=== PATIENT | female | born 1990 | race Hispanic/Latino ===

== ENCOUNTER 2019-04-02 21:16 | Emergency (ER) | payer BC ==
[2019-04-02 22:03] LABS: Urine Blood 3+ (NEG); Urine Glucose NEGATIVE (NEG); Urine Protein NEGATIVE (NEG)
[2019-04-02] MEDS ORDERED: ONDANSETRON 4 MG/2 ML VIAL ONE (22:08)
[2019-04-02] MEDS ORDERED: FAMOTIDINE 20 MG/2 ML VIAL IV ONE (22:08)
[2019-04-02] MEDS ORDERED: NA CHLORIDE 0.9% 1,000 ML ONE (22:08)
[2019-04-02 22:43] LABS: Absolute Lymphocytes (CBC) 1.9 K/uL (0.7-4.9); Basophils % 0.5 % (0-1.3); Hematocrit 36.6 % (36.0-45.0); Lymphocytes % 27.7 % (15.3-44.8); MPV 8.2 fL (7.6-11.3); RBC Red Blood Cell Count 4.06 M/uL (3.86-4.86)
[2019-04-02 22:57] LABS: ALT/SGPT 21 U/L (12-78); AST/SGOT 11 U/L (15-37); Albumin 3.7 g/dL (3.4-5.0); Alkaline Phosphatase 58 U/L (45-117); BUN Blood Urea Nitrogen 14 mg/dL (7-18); Bicarbonate 26 mmol/L (21-32); Bilirubin Direct < 0.1 mg/dL (0-0.2); Bilirubin Total 0.2 mg/dL (0.2-1.0); Glucose Level 102 mg/dL (74-106); HCG, Quantitative 23 mIU/mL (1-3); Lipase 174 U/L (73-393); Potassium 3.6 mmol/L (3.5-5.1); Protein, Total 7.8 g/dL (6.4-8.2); Sodium Level 142 mmol/L (136-145)
[2019-04-02 23:01] LABS: Urine Amorphous Sediment 3+ /HPF (NONE SEEN); Urine Bacteria >50 /HPF (<20); Urine Culture Reflex Order REFLEXED
[2019-04-03] MEDS ORDERED: ACETAMINOPHEN 325 MG TABLET ONE (00:02)
--- NOTE | 2019-04-03 00:27 | ER ---
Nurse's Notes [facility] Name: Hafsa Dougherty Age: 28 yrs Sex: Female : 1990 Arrival Date: 04/02/2019 Time: 21:17 Bed 30 Private MD: Diagnosis: Threatened ;Unspecified abdominal pain Presentation: 04/02 21:22 Presenting complaint: Patient states: i have LLQ and epigastric pain started this mg2 morning, and vaginal spotting this evening. i took a urine test and its positive. i also have nausea and a little bit of vomiting. Transition of care: patient was not received from another setting of care. Onset of symptoms was April 02, 2019. Risk Assessment: Do you want to hurt yourself or someone else? Patient reports no desire to harm self or others. Initial Sepsis Screen: Does the patient meet any 2 criteria? No. Patient's initial sepsis screen is negative. Does the patient have a suspected source of infection? No. Patient's initial sepsis screen is negative. Care prior to arrival: None. 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 - Social history:: Smoking status: Patient/guardian denies using tobacco, Patient/guardian denies using alcohol, street drugs, IV drugs. - Ebola Screening: : No symptoms or risks identified at this time. Screenin:26 Abuse screen: Denies threats or abuse. Denies injuries from another. Nutritional mg2 screening: No deficits noted. Tuberculosis screening: No symptoms or risk factors identified. 21:45 Fall Risk None identified. lc1 Assessment: 21:45 General: Appears uncomfortable, well groomed, well developed, Behavior is calm, lc1 cooperative. Pain: Complains of pain in abdomen Pain does not radiate. Pain currently is 7 out of 10 on a pain scale. Quality of pain is described as aching, Pain began this evening Is. Neuro: No deficits noted. Cardiovascular: No deficits noted. Denies chest pain, fatigue, palpitations, shortness of breath. Respiratory: Airway is patent Trachea midline Respiratory effort is even, unlabored, Respiratory pattern is regular, symmetrical. GI: Bowel sounds present X 4 quads. Abd is soft Abdomen is tender to palpation. GI: Parent/caregiver reports the patient having took test 3 days ago and it was positive, LMP 02/25/19. : No signs and/or symptoms were reported regarding the genitourinary system. EENT: No signs and/or symptoms were reported regarding the EENT system. Derm: No signs and/or symptoms reported regarding the dermatologic system. Musculoskeletal: No signs and/or symptoms reported regarding the musculoskeletal system. 23:00 Reassessment: No changes from previously documented assessment. Patient and/or family lc1 updated on plan of care and expected duration. Pain level reassessed. Patient is alert, oriented x 3, equal unlabored respirations, skin warm/dry/pink. 23:58 Reassessment: No changes from previously documented assessment. Patient and/or family lc1 updated on plan of care and expected duration. Pain level reassessed. Patient is alert, oriented x 3, equal unlabored respirations, skin warm/dry/pink. patient got up and urinated, states she had some more spotting . 04/03 00:40 Reassessment: No changes from previously documented assessment. Patient and/or family lc1 updated on plan of care and expected duration. Pain level reassessed. Patient is alert, oriented x 3, equal unlabored respirations, skin warm/dry/pink. Vital Signs: 04/02 21:25 BP 124 / 84; Pulse 85; Resp 18; Temp 98.2; Pulse Ox 100% on R/A; Weight 69.85 kg; mg2 Height 5 ft. 4 in. (162.56 cm); Pain 12/31; 23:00 BP 90 / 51; Pulse 71; Resp 18; Pulse Ox 98% on R/A; lc1 04/03 00:00 BP 99 / 59; Pulse 71; Resp 18; Pulse Ox 99% on R/A; lc1 04/02 21:25 Body Mass Index 26.43 (69.85 kg, 162.56 cm) mg2 ED Course: 04/02 21:17 Patient arrived in ED. ds1 21:24 Triage completed. mg2 21:26 Víctor Sesay PA is PHCP. cp 21:26 Abdias Stout MD is Attending Physician. cp 21:26 Arm band placed on. mg2 21:33 Graciela Mandel is Primary Nurse. lc1 21:45 Patient has correct armband on for positive identification. Placed in gown. Bed in low lc1 position. 21:59 No apparent distress. Resting quietly. significant other at bedside. lc1 21:59 Urine collected: clean catch specimen, clear. lc1 22:05 Missed attempt(s): 20 gauge in right antecubital area. Bleeding controlled, band aid jp3 applied, catheter tip intact. 22:10 Initial lab(s) drawn, by me, sent to lab. Inserted saline lock: 22 gauge in left jp3 antecubital area, using aseptic technique. Blood collected. Patient maintains SpO2 saturation greater than 95% on room air. 22:16 Patient moved to radiology via wheelchair. lc1 22:16 Warm blanket given. Verbal reassurance given. Pulse ox on. NIBP on. jp3 22:52 US Transvaginal Ob In Process Unspecified. EDMS 22:52 US Abdomen Limited: upper abdomen In Process Unspecified. EDMS 23:00 Awaiting lab results, Awaiting radiology results. lc1 23:00 No provider procedures requiring assistance completed. [facility] 04/03 00:24 Fabiana Albert MD is Referral Physician. cp 00:40 IV discontinued, intact, bleeding controlled, Pressure dressing applied. lc1 Administered Medications: 04/02 22:13 Drug: Pepcid 20 mg Route: IVP; Site: left antecubital; lc1 23:19 Follow up: Response: No adverse reaction 1 22:14 Drug: Zofran 4 mg Route: IVP; Site: left antecubital; lc1 23:20 Follow up: Response: No adverse reaction 1 22:50 Drug: NS 0.9% 1000 ml Route: IV; Rate: 1 bolus; Site: left antecubital; lc1 23:59 Follow up: Response: No adverse reaction; IV Status: Completed infusion [facility] 04/03 00:04 Drug: Tylenol 650 mg Route: PO; lc1 00:42 Follow up: Response: No adverse reaction [facility] 00:31 Drug: Rocephin 1 grams Route: IV; Rate: bolus; Site: right antecubital; tr5 00:45 Follow up: Response: No adverse reaction; IV Status: Completed infusion lc1 Outcome: 00:25 Discharge ordered by . tati 00:40 Condition: good lc1 00:40 Discharge instructions given to patient, Instructed on discharge instructions, medication usage, Demonstrated understanding of instructions, follow-up care, medications, Prescriptions given X 2. 00:53 Discharged to home ambulatory. lc1 00:53 Patient left the ED. lc1 Signatures: Dispatcher [employer] EDGA AvilaMonica lewis Lisa lc1 Víctor Sesay PA PA cp Gardose, Michele, HERNANDO RN mg2 Rod Angelo jp3 Jean Claude Calderón RN RN tr5
[2019-04-03] MEDS ORDERED: CEFTRIAXONE/SWI 1gm 1 GM/10 ML SYR ONE (00:28)
--- NOTE | 2019-04-03 00:28 | EDPHYS ---
Physician Documentation [facility] Name: Hafsa Dougherty Age: 28 yrs Sex: Female : 1990 Arrival Date: 04/02/2019 Time: 21:17 Bed 30 Private MD: ED Physician Abdias Stout HPI: 04/02 22:30 This 28 yrs old Female presents to ER via Ambulatory with complaints of cp Abdominal Pain, Spotting-. 22:30 The patient presents with abdominal pain in the upper abdomen, in the lower abdomen. cp Onset: The symptoms/episode began/occurred today. The symptoms do not radiate. Associated signs and symptoms: Pertinent positives: nausea and vomiting, vaginal bleeding, urinary frequency, Pertinent negatives: anorexia, chest pain, constipation, diarrhea, dysuria, fever. 22:30 Severity of pain: in the emergency department the pain is unchanged despite home cp interventions. 22:30 Patient reports positive home test today. 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 - Social history:: Smoking status: Patient/guardian denies using tobacco, Patient/guardian denies using alcohol, street drugs, IV drugs. - Ebola Screening: : No symptoms or risks identified at this time. ROS: 22:35 Constitutional: Negative for body aches, chills, fever, poor PO intake. cp 22:35 Cardiovascular: Negative for chest pain, palpitations. cp 22:35 Eyes: Negative for injury, pain, redness, and discharge. cp 22:35 ENT: Negative for drainage from ear(s), ear pain, sore throat, difficulty swallowing, difficulty handling secretions. 22:35 Respiratory: Negative for cough, shortness of breath, wheezing. 22:35 Abdomen/GI: Positive for abdominal pain, nausea, vomiting, Negative for constipation, anorexia, black/tarry stool, rectal bleeding. 22:35 : Positive for vaginal bleeding, Negative for burning with urination. 22:35 Skin: Negative for rash. 22:35 Neuro: Negative for altered mental status, headache, weakness. 22:35 All other systems are negative. Exam: 22:45 Constitutional: The patient appears in no acute distress, alert, awake, non-toxic, well cp developed, well nourished. 22:45 Head/Face: Normocephalic, atraumatic. cp 22:45 Eyes: Periorbital structures: appear normal, Conjunctiva: normal, no exudate, no injection, Sclera: no appreciated abnormality, Lids and lashes: appear normal, bilaterally. 22:45 ENT: External ear(s): are unremarkable, Nose: is normal, Mouth: is normal, Posterior pharynx: is normal, airway is patent, no erythema, no exudate. 22:45 Chest/axilla: Inspection: normal, Palpation: is normal, no crepitus, no tenderness. 22:45 Cardiovascular: Rate: normal, Rhythm: regular. 22:45 Respiratory: the patient does not display signs of respiratory distress, Respirations: normal, no use of accessory muscles, no retractions, no splinting, no tachypnea, labored breathing, is not present, Breath sounds: are clear throughout, no decreased breath sounds, no stridor, no wheezing. 22:45 Abdomen/GI: Inspection: abdomen appears normal, Bowel sounds: active, all quadrants, Palpation: soft, in all quadrants, mild abdominal tenderness, in the abdomen diffusely, rebound tenderness, is not appreciated, involuntary guarding, is not appreciated. 22:45 Back: CVA tenderness, is absent. 22:45 Skin: no rash present. Vital Signs: 21:25 BP 124 / 84; Pulse 85; Resp 18; Temp 98.2; Pulse Ox 100% on R/A; Weight 69.85 kg; mg2 Height 5 ft. 4 in. (162.56 cm); Pain 7/10; 23:00 BP 90 / 51; Pulse 71; Resp 18; Pulse Ox 98% on R/A; lc1 04/03 00:00 BP 99 / 59; Pulse 71; Resp 18; Pulse Ox 99% on R/A; lc1 04/02 21:25 Body Mass Index 26.43 (69.85 kg, 162.56 cm) mg2 MDM: 04/02 21:32 Patient medically screened. cp 22:00 Differential diagnosis: cholecystitis, Cholelithiasis, Ectopic , Ovarian cp Torsion, pancreatitis, Pelvic Inflammatory Disease, Tubal Ovarian Abcess, urinary tract infection. 04/03 00:25 Data reviewed: vital signs, nurses notes, lab test result(s), radiologic studies, cp ultrasound, I have discussed the patient's presentation/case with the attending Emergency Department Physician; and as a result, I will discharge patient. 00:25 Counseling: I had a detailed discussion with the patient and/or guardian regarding: the cp historical points, exam findings, and any diagnostic results supporting the discharge/admit diagnosis, lab results, radiology results, the need for outpatient follow up, an OB/Gyne specialist, to return to the emergency department if symptoms worsen or persist or if there are any questions or concerns that arise at home. Response to treatment: the patient's symptoms have mildly improved after treatment, and as a result, I will discharge patient. ED course: VSS. Discussed results of labs and US that returned negative for IUP. Pain improved, will discharge to home with pelvic rest instructions and to repeat beta-hcg in 48 hours. 04/02 21:56 Order name: Quantitative Hcg; Complete Time: 23:27 04/02 23:27 Interpretation: Abnormal: HCGQ 23. 04/02 21:56 Order name: Abo/rh Typing; Complete Time: 23:50 04/02 23:50 Interpretation: Reviewed. 04/02 21:56 Order name: Basic Metabolic Panel; Complete Time: 23:27 04/02 23:28 Interpretation: Reviewed. 04/02 21:56 Order name: CBC with Diff; Complete Time: 23:27 04/02 23:51 Interpretation: Reviewed. 04/02 21:56 Order name: Lipase; Complete Time: 23:27 04/02 23:51 Interpretation: Reviewed. 04/02 21:56 Order name: LFT's; Complete Time: 23:27 04/02 23:27 Interpretation: Normal except: AST 11; GLOB 4.1; A/G 0.9. 04/02 21:58 Order name: US Transvaginal Ob 04/02 21:58 Order name: US Abdomen Limited: upper abdomen 04/02 21:58 Order name: Urine Dipstick--Ancillary (enter results); Complete Time: 22:21 em1 04/02 22:22 Interpretation: Normal except: UBLD 3+; UESTR 2+. cp 04/02 22:01 Order name: Urine --Ancillary (enter results); Complete Time: 22:48 em1 04/02 22:48 Interpretation: URINE PREG POS; Reviewed. cp 04/02 22:21 Order name: Urine Microscopic Only; Complete Time: 23:27 cp 04/02 23:27 Interpretation: Normal except: UWBC 20-50; URBC 10-20; UBACT >50; SQEPI 10-20; AMORPH cp 3+. 04/02 22:28 Order name: Osborne Screen Profile; Complete Time: 23:27 cp 04/02 23:28 Interpretation: MONO NEG; Reviewed. cp 04/02 23:02 Order name: Urine Culture EDMS 04/02 21:56 Order name: Urine Test (obtain specimen); Complete Time: 21:56 cp 04/02 21:56 Order name: IV Saline Lock; Complete Time: 22:15 cp 04/02 21:56 Order name: Labs collected and sent; Complete Time: 22:15 cp 04/02 21:56 Order name: NPO; Complete Time: 22:15 cp 04/02 21:56 Order name: Urine Dipstick-Ancillary (obtain specimen); Complete Time: 21:56 cp Administered Medications: 04/02 22:13 Drug: Pepcid 20 mg Route: IVP; Site: left antecubital; lc1 23:19 Follow up: Response: No adverse reaction lc1 22:14 Drug: Zofran 4 mg Route: IVP; Site: left antecubital; lc1 23:20 Follow up: Response: No adverse reaction 1 22:50 Drug: NS 0.9% 1000 ml Route: IV; Rate: 1 bolus; Site: left antecubital; lc1 23:59 Follow up: Response: No adverse reaction; IV Status: Completed infusion 1 04/03 00:04 Drug: Tylenol 650 mg Route: PO; lc1 00:42 Follow up: Response: No adverse reaction 1 00:31 Drug: Rocephin 1 grams Route: IV; Rate: bolus; Site: right antecubital; tr5 00:45 Follow up: Response: No adverse reaction; IV Status: Completed infusion lc1 Disposition: 01:14 Co-signature as Attending Physician, Abdias Stout MD. rn Disposition: 04/03/19 00:25 Discharged to Home. Impression: Threatened , Unspecified abdominal pain. - Condition is Stable. - Discharge Instructions: Threatened Miscarriage, Vaginal Bleeding During , First Trimester, Pelvic Rest. - Prescriptions for Vitamin 27- 0.8 mg Oral Tablet - take 1 tablet by ORAL route once daily; 60 tablet. Macrobid 100 mg Oral Capsule - take 1 capsule by ORAL route every 12 hours for 7 days; 14 capsule. - Medication Reconciliation Form, Thank You Letter, Antibiotic Education, Prescription Opioid Use form. - Follow up: Fabiana Albert MD; When: 48 Hours; Reason: Repeat Beta-HCG (48 Hours). Follow up: Emergency Department; When: 48 Hours; Reason: Repeat Beta-HCG (48 Hours). - Problem is new. - Symptoms have improved. Signatures: Dispatcher [employer] EDMS Abdias Stout MD MD rn Calhoun, Graciela lc1 Víctor Sesay PA PA cp Gardose, Michele, RN RN mg2 Jean Claude Calderón RN RN tr5 Corrections: (The following items were deleted from the chart) 04/02 22:48 22:48 Abnormal: URINE PREG POS. cp cp 04/03 00:53 00:25 04/03/2019 00:25 Discharged to Home. Impression: Threatened ; Unspecified lc1 abdominal pain. Condition is Stable. Forms are Medication Reconciliation Form, Thank You Letter, Antibiotic Education, Prescription Opioid Use. Follow up: Fabiana Albert; When: 48 Hours; Reason: Repeat Beta-HCG (48 Hours). Follow up: Emergency Department; When: 48 Hours; Reason: Repeat Beta-HCG (48 Hours). Problem is new. Symptoms have improved. cp
[2019-04-03 01:01] VITALS: TEMP 98.2
[2019-04-03 01:04] VITALS: BP 99/59; O2SAT 99
--- NOTE | 2019-04-03 08:08 | RAD REPORT ---
EXAM DESCRIPTION: US - Abdomen Exam Limited - 04/02/2019 10:52 pm CLINICAL HISTORY: Abdominal pain. COMPARISON: None. FINDINGS: The gallbladder is not well distended limiting evaluation somewhat The gallbladder wall is not thickened. A gallstone is not seen. The biliary tree is normal caliber. IMPRESSION: No gallbladder abnormality displayed
--- NOTE | 2019-04-03 08:11 | RAD REPORT ---
EXAM DESCRIPTION: US - Transvaginal OB - 04/02/2019 10:52 pm CLINICAL HISTORY: with pelvic pain and vaginal bleeding COMPARISON: None. FINDINGS: The uterus measures 7 x 3 x 5 centimeters. A gestational sac is not seen within the endom etrium. Endometrial stripe measures 7 millimeters Neither ovary visualized secondary to overlying bowel gas. . An adnexal mass is not noted. No significant free fluid is seen. IMPRESSION: These findings may indicate an early intrauterine in which the gestational sac is not seen secondary to the early age. and even an ectopic can also result in th is appearance. Serial beta HCG levels as well as follow up endovaginal sonogram in 1 week recommended
== END 2019-04-03 00:53 | disposition home or self-care (01) ==
LOC: ER 21:16
DX: O20.0 Threatened abortion (principal); Z3A.00 Weeks of gestation of pregnancy not specified
CPT/HCPCS: 96361; 87088; 85025; 87086; 80048; 36415; 86900; 86308; 81025; 86901; 80076; 84702; 83690; 76705; 76817; 96375; 96374; 99284; J0696; J7030; J2405; 81003; 81015

== ENCOUNTER 2019-04-04 13:27 | Emergency (ER) | payer BC ==
--- NOTE | 2019-04-04 14:16 | ER ---
Nurse's Notes [facility] Name: Hafsa Dougherty Age: 28 yrs Sex: Female : 1990 Arrival Date: 04/04/2019 Time: 13:30 Bed 19 Private MD: Diagnosis: Spontaneous Presentation: 04/04 13:32 Presenting complaint: Patient states: I was here on I was here with spotting, la1 was told to have my HCG rechecked in 48 hours and my bleeding has increased. Transition of care: patient was not received from another setting of care. Onset of symptoms was April 04, 2019. Risk Assessment: Do you want to hurt yourself or someone else? Patient reports no desire to harm self or others. Initial Sepsis Screen: Does the patient meet any 2 criteria? No. Patient's initial sepsis screen is negative. Does the patient have a suspected source of infection? No. Patient's initial sepsis screen is negative. Care prior to arrival: None. 13:32 Method Of Arrival: Ambulatory la1 13:32 Acuity: ROSA 4 la1 RADIO DIRECTOR: 13:33 1, LMP 02/25/2019 la1 14:13 1, 0, Living 0, LMP 02/25/2019 kb Historical: - Allergies: 13:33 No Known Allergies; la1 - PMHx: 13:33 None; la1 - Immunization history:: Adult Immunizations up to date. - Social history:: Smoking status: Patient/guardian denies using tobacco. - Ebola Screening: : No symptoms or risks identified at this time. Screenin:00 Abuse screen: Denies threats or abuse. Nutritional screening: No deficits noted. em Tuberculosis screening: No symptoms or risk factors identified. Fall Risk None identified. Assessment: 14:00 General: Appears in no apparent distress. comfortable, Behavior is calm, cooperative, em Denies fever. Pain: Complains of pain in abdomen Pain currently is 5 out of 10 on a pain scale. Quality of pain is described as crampy. Neuro: Level of Consciousness is awake, alert, obeys commands, Oriented to person, place, time, situation, Appropriate for age. Cardiovascular: Capillary refill < 3 seconds Patient's skin is warm and dry. Respiratory: Airway is patent Respiratory effort is even, unlabored, Respiratory pattern is regular, symmetrical. GI: Abdomen is flat, Patient currently denies nausea, vomiting. : Reports vaginal bleeding that is. Derm: Skin is intact, is healthy with good turgor, Skin is pink, warm \T\ dry. Musculoskeletal: Capillary refill < 3 seconds, Range of motion: intact in all extremities. Vital Signs: 13:33 BP 108 / 76; Pulse 66; Resp 16; Temp 97.5; Pulse Ox 100% on R/A; Weight 69.85 kg; la1 Height 5 ft. 4 in. (162.56 cm); 13:33 Body Mass Index 26.43 (69.85 kg, 162.56 cm) la1 ED Course: 13:30 Patient arrived in ED. mr 13:33 Triage completed. la1 13:34 Arm band placed on right wrist. la1 13:36 [facility] Driver [facility]C [facility] kb 13:36 Rocky Fragoso MD is Attending Physician. kb 13:36 Romeo Hughes LVN is Primary Nurse. em 13:44 Initial lab(s) drawn, by me, sent to lab. kj1 13:44 HCG-Quantitative Sent. kj1 14:00 Patient has correct armband on for positive identification. Bed in low position. Call em light in reach. Adult w/ patient. 14:37 No provider procedures requiring assistance completed. Patient did not have IV access em during this emergency room visit. Administered Medications: No medications were administered Outcome: 14:16 Discharge ordered by MD. kb 14:37 Discharged to home ambulatory, with family. em 14:37 Condition: good 14:37 Discharge instructions given to patient, family, Instructed on discharge instructions, follow up and referral plans. Demonstrated understanding of instructions, follow-up care. 14:39 Patient left the ED. em Signatures: Ana Driver FNP-C FNP-Ckb RiveraIva mr Romeo Hughes, [employer] PUBLIC SAFETY OFFICER em Yoel Cedeno RN RN la1 Ramona Driver kj1
--- NOTE | 2019-04-04 14:16 | EDPHYS ---
Physician Documentation [facility] Name: Hafsa Dougherty Age: 28 yrs Sex: Female : 1990 Arrival Date: 04/04/2019 Time: 13:30 Bed 19 Private MD: ED Physician Rocky Fragoso HPI: 04/04 14:13 This 28 yrs old Female presents to ER via Ambulatory with complaints of kb Vaginal Bleeding, + Preg <12wks. 14:13 The patient presents to the emergency department with urinary symptoms. kb course: care: none, Leakage of Fluid: none appreciated, Ultrasound: the patient had an ultrasound, Risk/complications: no obvious risks or complications are appreciated. Previous pregnancies: the patient has never been . Associated signs and symptoms: Pertinent positives: vaginal bleeding. The patient has not experienced similar symptoms in the past. The patient has been recently seen by a physician:. Pt reports she came in for spotting and was told to come back for repeat quantitative hcg today. . 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 - Social history:: Smoking status: Patient/guardian denies using tobacco. - Ebola Screening: : No symptoms or risks identified at this time. ROS: 14:13 Constitutional: Negative for fever, chills, and weight loss, Cardiovascular: Negative kb for chest pain, palpitations, and edema, Respiratory: Negative for shortness of breath, cough, wheezing, and pleuritic chest pain, Abdomen/GI: Negative for abdominal pain, nausea, vomiting, diarrhea, and constipation, Back: Negative for injury and pain, MS/Extremity: Negative for injury and deformity, Skin: Negative for injury, rash, and discoloration, Neuro: Negative for headache, weakness, numbness, tingling, and seizure. 14:13 : Positive for vaginal bleeding. Exam: 14:13 Constitutional: This is a well developed, well nourished patient who is awake, alert, kb and in no acute distress. Head/Face: Normocephalic, atraumatic. ENT: Nares patent. No nasal discharge, no septal abnormalities noted. Tympanic membranes are normal and external auditory canals are clear. Oropharynx with no redness, swelling, or masses, exudates, or evidence of obstruction, uvula midline. Mucous membranes moist. Neck: Trachea midline, no thyromegaly or masses palpated, and no cervical lymphadenopathy. Supple, full range of motion without nuchal rigidity, or vertebral point tenderness. No Meningismus. Chest/axilla: Normal chest wall appearance and motion. Nontender with no deformity. No lesions are appreciated. Cardiovascular: Regular rate and rhythm with a normal S1 and S2. No gallops, murmurs, or rubs. Normal PMI, no JVD. No pulse deficits. Respiratory: Lungs have equal breath sounds bilaterally, clear to auscultation and percussion. No rales, rhonchi or wheezes noted. No increased work of breathing, no retractions or nasal flaring. Abdomen/GI: Soft, non-tender, with normal bowel sounds. No distension or tympany. No guarding or rebound. No evidence of tenderness throughout. Skin: Warm, dry with normal turgor. Normal color with no rashes, no lesions, and no evidence of cellulitis. MS/ Extremity: Pulses equal, no cyanosis. Neurovascular intact. Full, normal range of motion. Neuro: Awake and alert, GCS 15, oriented to person, place, time, and situation. Cranial nerves II-XII grossly intact. Motor strength 5/5 in all extremities. Sensory grossly intact. Cerebellar exam normal. Normal gait. Vital Signs: 13:33 BP 108 / 76; Pulse 66; Resp 16; Temp 97.5; Pulse Ox 100% on R/A; Weight 69.85 kg; la1 Height 5 ft. 4 in. (162.56 cm); 13:33 Body Mass Index 26.43 (69.85 kg, 162.56 cm) la1 MDM: 13:36 Patient medically screened. kb 14:13 Data reviewed: vital signs, nurses notes. Data interpreted: Pulse oximetry: on room air kb is 100 %. Interpretation: normal. 14:15 Counseling: I had a detailed discussion with the patient and/or guardian regarding: the kb historical points, exam findings, and any diagnostic results supporting the discharge/admit diagnosis, lab results, the need for outpatient follow up, an OB/Gyne specialist, to return to the emergency department if symptoms worsen or persist or if there are any questions or concerns that arise at home. 04/04 13:35 Order name: HCG-Quantitative; Complete Time: 14:15 em Administered Medications: No medications were administered Disposition: 15:11 Co-signature as Attending Physician, Rocky Fragoso MD I agree with the assessment and kdr plan of care. Disposition: 04/04/19 14:16 Discharged to Home. Impression: Spontaneous . - Condition is Stable. - Discharge Instructions: Miscarriage, [id number]. - Medication Reconciliation Form, Thank You Letter, Antibiotic Education, Prescription Opioid Use form. - Follow up: Emergency Department; When: As needed; Reason: Worsening of condition. Follow up: Private Physician; When: 2 - 3 days; Reason: Recheck today's complaints, Continuance of care, Re-evaluation by your physician. Signatures: Dispatcher [employer] EDAna Rey, MIKA-C MIKA-Rocky Johnson MD MD [facility] Romeo Hughes, SOFTWARE CONFIGURATION ANALYST SOFTWARE CONFIGURATION ANALYST em Yoel Cedeno RN RN la1 Corrections: (The following items were deleted from the chart) 14:39 14:16 04/04/2019 14:16 Discharged to Home. Impression: Spontaneous . Condition em is Stable. Forms are Medication Reconciliation Form, Thank You Letter, Antibiotic Education, Prescription Opioid Use. Follow up: Emergency Department; When: As needed; Reason: Worsening of condition. Follow up: Private Physician; When: 2 - 3 days; Reason: Recheck today's complaints, Continuance of care, Re-evaluation by your physician. kb
[2019-04-04 14:44] VITALS: BP 108/76; TEMP 97.5; O2SAT 100
== END 2019-04-04 14:39 | disposition home or self-care (01) ==
LOC: ER 13:27
DX: O03.9 Complete or unspecified spontaneous abortion without complication (principal); Z3A.00 Weeks of gestation of pregnancy not specified
CPT/HCPCS: 36415; 84702; 99283

== ENCOUNTER 2020-10-10 11:03 | Emergency (ER) | payer MEDICARE, OTHER ==
--- OUTSIDE RECORDS SUMMARY | 2020-10-10 11:06 | XMS REPORT | Continuity of Care Document ---
:1990 Author Organization [facility] t Address [address] [place] [address] Care Team Providers Name Role Phone Rafa Freeman DO Attending Clinician Jt Jones MD Attending Clinician Edwina OAKLEY Attending Clinician Doctor Unassigned, Name Attending Clinician Unavailable 2, Lab Attending Clinician Unavailable Pcp, Does Not Have A Attending Clinician Ultrasound Attending Clinician Unavailable Problems This patient has no known problems. Allergies, Adverse Reactions, Alerts This patient has no known allergies or adverse reactions. Medications This patient has no known medications. Procedures This patient has no known procedures. Encounters Start End Encounter Admission Attending Care Care Encounter Source Date/Time Date/Time Type Type Clinicians Facility Department ID 2020-09-13 2020-09-13 Patient MAGGIE Freeman [id number] 00:00:00 00:00:00 Outreach Rafa CURRY [id number] Lon [facility] [id number] ANJEL [phone] [facility] 2019-12-02 2019-12-02 Telemedici Connie Jones [facility] [id number] 07:56:31 14:59:36 ne Visit Jt Gentile [id number] [place] [id number] Lety [phone] [address] 2019-11-13 2019-11-13 Telemedici MAGGIE Bland [id number] 09:25:17 09:40:17 ne Visit [place] [id number] [place] [id number] Professio [phone] [facility] [address] [facility] 2019-11-12 2019-11-12 Telephone Connie Jones [place] [id number] 00:00:00 00:00:00 Cam [place] [id number] [place] [id number] Professio [phone] [address] 2019-11-12 2019-11-12 Orders Doctor SUMEET [id number] 00:00:00 00:00:00 Only Unassigned, JAMILA [id number] [facility] [id number] [id number] 2019-10-29 2019-10-29 Routine Connie Jones [facility] [id number] 10:47:32 11:30:12 Cam [place] [id number] Visit [place] [id number] Professio [phone] [address] 2019-10-29 2019-10-29 Orders Doctor SUMEET [id number] 00:00:00 00:00:00 Only Unassigned, JAMILA [id number] [facility] [id number] [id number] 2019-10-20 2019-10-20 Director Of Business Services 2, [facility] [id number] 14:11:11 14:26:11 Visit [place] [id number] [place] [id number] Professio [phone] [address] 2019-10-20 2019-10-20 Routine Connie Jones [facility] [id number] 13:09:48 13:58:42 Cam [place] [id number] Visit [place] [id number] Professio [phone] [address] 2019-10-20 2019-10-20 Orders Doctor SUMEET [id number] 00:00:00 00:00:00 Only Unassigned, JAMILA [id number] [facility] [id number] [id number] 2019-10-16 2019-10-16 Telephone Robert Connie [facility] [id number] 00:00:00 00:00:00 Cam [place] [id number] [place] [id number] Professio [phone] [address] 2019-10-06 2019-10-06 Telephone [facility], [facility] [id number] 00:00:00 00:00:00 Patient [place] [id number] Does Not [place] [id number] Have A Professio [phone] [address] 2019-09-21 2019-09-21 Director Of Business Services Ultrasound, [facility] [id number] 13:31:03 14:22:53 Visit [facility] [employer]TER REFRIG[employer]ATION [id number] [facility] [id number] MATERNAL [phone] & CHILD [address] [place] [address] [facility] [place] 2019-09-21 2019-09-21 Telemedici Connie Jones [facility] [id number] 08:22:22 08:37:22 ne Visit Jt [place] [id number] [place] [id number] Professio [phone] [address] 2019-07-27 2019-07-27 Routine Edwina [facility] [id number] 13:54:26 14:36:51 [place] [id number] Visit [place] [id number] Professio [phone] [address] Results This patient has no known results.
[2020-10-10 14:53] LABS: Urine Blood 2+ (Negative); Urine Glucose NEGATIVE (Negative); Urine Protein NEGATIVE (Negative); Urine Specific Gravity >1.030 (1.005-1.030); Urine Specific Gravity/Preg >1.030 (1.005-1.030); Urine pH 5.5 (5.0-7.0)
[2020-10-10 15:04] LABS: Absolute Lymphocytes (CBC) 1.5 K/uL (0.7-4.9); Basophils % 0.6 % (0-1.3); Hematocrit 39.6 % (36.0-45.0); Lymphocytes % 27.9 % (15.3-44.8); MPV 8.4 fL (7.6-11.3); RBC Red Blood Cell Count 4.34 M/uL (3.86-4.86)
[2020-10-10 15:25] LABS: BUN Blood Urea Nitrogen 12 mg/dL (7-18); Bicarbonate 26 mmol/L (21-32); Glucose Level 97 mg/dL (74-106); Potassium 3.7 mmol/L (3.5-5.1); Sodium Level 140 mmol/L (136-145)
[2020-10-10 15:30] LABS: HCG, Quantitative < 1 mIU/mL (1-3)
--- NOTE | 2020-10-10 16:17 | EDPHYS ---
Physician Documentation [facility] Name: Hafsa Dougherty Age: 30 yrs Sex: Female : 1990 Arrival Date: 10/10/2020 Time: 11:08 Bed 29 Private MD: ED Physician Bowen Larson HPI: 10/10 14:30 This 30 yrs old Female presents to ER via Ambulatory with complaints of jmm Abdominal Cramping. 14:30 The patient presents with vaginal bleeding that is. Onset: The symptoms/episode jmm began/occurred gradually, just prior to arrival, 1 month(s) ago. Modifying factors: The symptoms are alleviated by nothing, the symptoms are aggravated by nothing. Associated signs and symptoms: Pertinent positives: pelvic pain, vaginal bleeding. The patient has not experienced similar symptoms in the past. This is a 30 year old female with no chronic medical conditions that presents to the ED with complaints pelvic cramping, abnormal vaginal bleeding beginning approx 1 month ago. Patient states having 3 episodes of bleeding over the past month with intermittent cramping. Home UPT negative. . Historical: - Allergies: 11:38 No Known Allergies; ll1 - PMHx: 11:38 None; ll1 - PSHx: 11:38 nystagmus sx; ll1 - Immunization history:: Flu vaccine is up to date. - Social history:: Smoking status: Patient denies any tobacco usage or history of. ROS: 14:30 Constitutional: Negative for fever, chills, and weight loss, Cardiovascular: Negative jmm for chest pain, palpitations, and edema, Respiratory: Negative for shortness of breath, cough, wheezing, and pleuritic chest pain. 14:30 Abdomen/GI: Positive for abdominal pain. 14:30 : Positive for pelvic pain. 14:30 MS/extremity: 14:30 All other systems are negative. Exam: 14:30 Constitutional: This is a well developed, well nourished patient who is awake, alert, jmm and in no acute distress. Head/Face: atraumatic. Eyes: EOMI, no conjunctival erythema appreciated ENT: Moist Mucus Membranes Neck: Trachea midline, Supple Chest/axilla: Normal chest wall appearance and motion. Cardiovascular: Regular rate and rhythm. No edema appreciated Respiratory: Normal respirations, no respiratory distress appreciated Abdomen/GI: Non distended, soft Back: Normal ROM Skin: General appearance color normal MS/ Extremity: Moves all extremities, no obvious deformities appreciated, no edema noted to the lower extremities Neuro: Awake and alert, normal gait Psych: Behavior is normal, Mood is normal, Patient is cooperative and pleasant Vital Signs: 11:36 BP 115 / 72; Pulse 86; Resp 16; Temp 98.5; Pulse Ox 98% ; Weight 65.77 kg; Height 5 ft. ll1 4 in. (162.56 cm); Pain 3/10; 11:36 Body Mass Index 24.89 (65.77 kg, 162.56 cm) ll1 MDM: 14:30 Patient medically screened. [facility] 16:15 Data reviewed: vital signs, nurses notes. Counseling: I had a detailed discussion with murphy the patient and/or guardian regarding: the historical points, exam findings, and any diagnostic results supporting the discharge/admit diagnosis, lab results, radiology results, the need for outpatient follow up, to return to the emergency department if symptoms worsen or persist or if there are any questions or concerns that arise at home. ED course: Patient is alert and non toxic in appearance in the ED. No signs of sepsis. H/H normal. Patient is advised to follow up with pcp and otherwise given strict return precautions. patient understood and agrees with the plan of care. . 10/10 14:33 Order name: Quantitative Hcg [facility] 10/10 14:33 Order name: Abo/rh Typing [facility] 10/10 14:33 Order name: Basic Metabolic Panel [facility] 10/10 14:33 Order name: CBC with Diff; Complete Time: 15:12 [facility] 10/10 14:34 Order name: HCG, Quantitative; Complete Time: 15:43 [facility] 10/10 14:34 Order name: ABO/RH typing; Complete Time: 15:43 [facility] 10/10 14:33 Order name: IV Saline Lock; Complete Time: 14:54 [facility] 10/10 14:33 Order name: Labs collected and sent; Complete Time: 14:54 [facility] 10/10 14:33 Order name: NPO; Complete Time: 14:47 [facility] 10/10 14:34 Order name: Basic Metabolic Panel; Complete Time: 15:43 [facility] 10/10 14:48 Order name: Urine Dipstick--Ancillary (enter results); Complete Time: 14:56 10/10 14:48 Order name: Urine --Ancillary (enter results); Complete Time: 14:56 10/10 16:11 Order name: Transvaginal Study Probe; Complete Time: 16:29 [facility] 10/10 14:33 Order name: Urine Dipstick-Ancillary (obtain specimen); Complete Time: 14:47 [facility] Administered Medications: No medications were administered Disposition: 17:50 Co-signature as Attending Physician, Bowen Larson MD I agree with the assessment and 4 plan of care. Disposition: 10/10/20 16:16 Discharged to Home. Impression: Abnormal uterine and vaginal bleeding, unspecified, Abdominal and pelvic pain. - Condition is Stable. - Discharge Instructions: Abnormal Uterine Bleeding, Pelvic Pain, Female. - Medication Reconciliation Form, Thank You Letter, Antibiotic Education, Prescription Opioid Use form. - Follow up: Private Physician; When: 2 - 3 days; Reason: Recheck today's complaints, Continuance of care, Re-evaluation by your physician. Signatures: Dispatcher [employer] [facility] Yomi Thorpe PA PA [facility] Camille Aldana, RN RN ss Bowen Larson MD MD tw4 Jonathan Rivera RN RN ll1 Corrections: (The following items were deleted from the chart) 16:11 15:14 Pelvis Complete+US.RAD.BRZ ordered. [facility] 16:29 16:16 10/10/2020 16:16 Discharged to Home. Impression: Abnormal uterine and vaginal ss bleeding, unspecified; Abdominal and pelvic pain. Condition is Stable. Forms are Medication Reconciliation Form, Thank You Letter, Antibiotic Education, Prescription Opioid Use. Follow up: Private Physician; When: 2 - 3 days; Reason: Recheck today's complaints, Continuance of care, Re-evaluation by your physician. hood
--- NOTE | 2020-10-10 16:17 | ER ---
Nurse's Notes [facility] Name: Hafsa Dougherty Age: 30 yrs Sex: Female : 1990 Arrival Date: 10/10/2020 Time: 11:08 Bed 29 Private MD: Diagnosis: Abnormal uterine and vaginal bleeding, unspecified;Abdominal and pelvic pain Presentation: 10/10 11:36 Chief complaint: Patient states: Vaginal bleeding (3 periods in one months time) for 1 ll1 month off/on. UPT negative at home. + cramping. Coronavirus screen: Client denies travel out of the [place] in the last 14 days. At this time, the client does not indicate any symptoms associated with coronavirus-19. Ebola Screen: Patient denies travel to an Ebola-affected area in the 21 days before illness onset. Initial Sepsis Screen: Does the patient meet any 2 criteria? No. Patient's initial sepsis screen is negative. Does the patient have a suspected source of infection? Yes: Acute abdominal pain. Risk Assessment: Do you want to hurt yourself or someone else? Patient reports no desire to harm self or others. Onset of symptoms was September 10, 2020. 11:36 Method Of Arrival: Ambulatory ll1 11:36 Acuity: ROSA 3 ll1 Historical: - Allergies: 11:38 No Known Allergies; ll1 - PMHx: 11:38 None; ll1 - PSHx: 11:38 nystagmus sx; ll1 - Immunization history:: Flu vaccine is up to date. - Social history:: Smoking status: Patient denies any tobacco usage or history of. Screenin:31 Abuse screen: Denies threats or abuse. Denies injuries from another. Nutritional ss screening: No deficits noted. Tuberculosis screening: Never had TB. Fall Risk None identified. Assessment: 14:33 General: Appears in no apparent distress. comfortable, Behavior is calm, cooperative, ss Denies fever, feeling ill, fatigue, chills. Pain: Complains of pain in suprapubic area Pain currently is 0 out of 10 on a pain scale. at worst was 7 out of 10 on a pain scale. Quality of pain is described as crampy, Pain began 2-3 days ago. Is intermittent. Neuro: Level of Consciousness is awake, alert, obeys commands, Oriented to person, place, time, situation, Brick[employer] Brick are equal bilaterally Moves all extremities. Full function Gait is steady, Speech is normal, Facial symmetry appears normal. Cardiovascular: Capillary refill < 3 seconds is brisk in bilateral fingers Patient's skin is warm and dry. Respiratory: Airway is patent Trachea midline Respiratory effort is even, unlabored, Respiratory pattern is regular, symmetrical, Denies cough, shortness of breath. GI: Bowel sounds present X 4 quads. Abd is soft and non tender X 4 quads. Patient currently denies diarrhea, nausea, vomiting. : Reports vaginal bleeding that began , was heavy yesterday, but seems to be getting much better today. Denies burning with urination. EENT: Nares are clear Oral mucosa is moist. Derm: Skin is intact, is healthy with good turgor, Skin is pink, warm \T\ dry. normal. Musculoskeletal: Circulation, motion, and sensation intact. Capillary refill < 3 seconds, is brisk, fingers. Range of motion: intact in all extremities, Swelling absent. 15:30 Reassessment: Patient appears in no apparent distress at this time. No changes from ss previously documented assessment. 16:28 Reassessment: Patient appears in no apparent distress at this time. Patient and/or ss family updated on plan of care and expected duration. Pain level reassessed. Patient is alert, oriented x 3, equal unlabored respirations, skin warm/dry/pink. Vital Signs: 11:36 BP 115 / 72; Pulse 86; Resp 16; Temp 98.5; Pulse Ox 98% ; Weight 65.77 kg; Height 5 ft. ll1 4 in. (162.56 cm); Pain 3/10; 11:36 Body Mass Index 24.89 (65.77 kg, 162.56 cm) ll1 ED Course: 11:08 Patient arrived in ED. ds1 11:38 Triage completed. ll1 11:39 Arm band placed on. ll1 14:22 Yomi Thorpe PA is PHCP. [facility] 14:22 Bowen Larson MD is Attending Physician. [facility] 14:31 Camille Aldana RN is Primary Nurse. ss 14:31 Patient has correct armband on for positive identification. Bed in low position. Call ss light in reach. 14:50 Urine collected: clean catch specimen, clear, marissa colored, T\T\S collected, blood band jp3 applied to patient. Inserted saline lock: 20 gauge in right antecubital area, using aseptic technique. Blood collected. 16:12 Transvaginal Study Probe In Process Unspecified. EDMS 16:29 No provider procedures requiring assistance completed. IV discontinued, intact, ss bleeding controlled, No redness/swelling at site. Pressure dressing applied. Administered Medications: No medications were administered Outcome: 16:16 Discharge ordered by . murphy 16:29 Discharged to home ambulatory. ss 16:29 Condition: good 16:29 Discharge instructions given to patient, Instructed on discharge instructions, follow up and referral plans. Demonstrated understanding of instructions, follow-up care. 16:29 Patient left the ED. ss Signatures: Dispatcher [employer] EDDE Yomi Thorpe PA PA jmm [place], Demi ds1 Camille Aldana, HERNANDO RN Rod Angelo jp3 Jonathan Rivera RN RN ll1
--- NOTE | 2020-10-10 16:23 | RAD REPORT ---
EXAM DESCRIPTION: US - Transvaginal Study Probe - 10/10/2020 4:12 pm CLINICAL HISTORY: pelvic pain, vaginal bleeding COMPARISON: none FINDINGS: The uterus measures 8 x 3 x 5cm. A fibroid is not seen. The endometrial stripe is normal c aliber. 2 centimeter right ovarian cyst. Blood flow to the right ovary is present The left ovary was not seen secondary to overlying bowel gas. . The right and left adnexal unremarkab le. No significant free fluid is seen. IMPRESSION: 2 centimeter right ovarian cyst
[2020-10-10 17:22] VITALS: BP 115/72; TEMP 98.5; O2SAT 98
== END 2020-10-10 16:29 | disposition home or self-care (01) ==
LOC: ER 11:03
DX: N93.9 Abnormal uterine and vaginal bleeding, unspecified (principal)
CPT/HCPCS: 36415; 76830; 80048; 81003; 81025; 84702; 85025; 86900; 86901; 99283